=== PATIENT | male | born 1960 | race Caucasian/White ===

== ENCOUNTER → 2022-02-26 15:16 | Outpatient (CLI) | payer BC, SELFPAY ==
--- NOTE | ~2022-02-26 | XR_ITS ---
XR chest 2V DATE: 02/26/2022 15:39 INDICATION: Cough TECHNIQUE: 2 views COMPARISON: 02/2018 PA and lateral chest FINDINGS: Heart size is within upper limits of normal. No hilar or mediastinal enlargement. No pulmon severino infiltrate or consolidation, pleural effusion or pulmonary vascular congestion or pneumothorax. IMPRESSION: No active disease Reviewed, dictated and finalized at location A. IMPRESSION: No active disease
== END ==
PROVIDERS: PCP Internal Medicine; Visit Provider Internal Medicine
DX: R05.9 Cough, unspecified (principal)
CPT/HCPCS: 71046